=== PATIENT | male | born 1965 | race Caucasian/White ===

== ENCOUNTER 2017-11-13 02:20 | Observation (INO) | payer OTHER ==
[~2017-11-13] VITALS: Ht 180.3 cm; Wt 73.6 kg
[2017-11-13 00:24] LABS: AUTOMATED NEUTROPHIL # 5.4 TH/MM3 (1.8-7.7); BASOPHIL % 0.4 % (0.0-2.0); EOSINOPHIL % 0.6 % (0.0-4.0); HEMOGLOBIN 16.2 GM/DL (13.0-17.0); IG % 0.4 % (0-6); LYMPH % 8.1 % (9.0-44.0); LYMPHOCYTE # 0.6 TH/MM3 (1.0-4.8); MEAN CELL VOLUME 83.2 FL (80.0-100.0); MEAN CORPUSCULAR HEMOGLOBIN 27.5 PG (27.0-34.0); MEAN CORPUSCULAR HGB CONC 33.1 % (32.0-36.0); MEAN PLATELET VOLUME 10.3 FL (7.0-11.0); MONOCYTE # 0.7 TH/MM3 (0-0.9); NEUT % 80.5 % (16.0-70.0); PLATELET COUNT 199 TH/MM3 (150-450); RED BLOOD COUNT 5.89 MIL/MM3 (4.50-5.90); RED CELL DISTRIBUTION WIDTH 18.4 % (11.6-17.2); WHITE BLOOD COUNT 6.8 TH/MM3 (4.0-11.0)
[2017-11-13 00:36] LABS: CALCIUM 8.6 MG/DL (8.5-10.1); CREATININE 0.9 MG/DL (0.60-1.30)
[~2017-11-13 02:20] MED LIST: ACETAMINOPHEN 325 MG TAB PO PRN; ASPI81CH6 CHEW; BISACODYL 10 MG SUPP RECTAL PRN; LACTULOSE SYRUP 20 GM/30 ML CUP PO PRN; MAGNESIUM HYDROXIDE SUSP 30 ML CUP PO PRN; NALOXONE HCL 0.4 MG/ML AMP IV PUSH PRN; ONDANSETRON HCL 4 MG/2 ML VIAL IVP PRN; PLAV75TA29 PO; RESP: ALBUTEROL 2.5 MG/IPRATROPIUM 0.5 MG NEB (PRN) NEB; SENNOSIDES 8.6 MG TAB PO PRN; SODIUM CHLORIDE 0.9% FLUSH 10 ML FLUSH IV FLUSH PRN; TIOT1AER INH
[2017-11-13 02:51] VITALS: BP 129/93; PULSE 101; RESP 18; TEMP 98.1; O2SAT 94
--- NOTE | 2017-11-13 04:03 | HHI.HP ---
[facility] No Primary Care Physician Admission Diagnosis Diagnoses: Travel History International Travel<30 Days: No Contact w/Intl Traveler <30 Da: No Traveled to Known Affected Are: No History of Present Illness 52-year-old male with a past medical history significant for "lung scarring" and history of TIA presents to the emergency department with a two-week history of bilateral lower extremity edema that is worsening. Patient complains accompanying shortness of breath and a chronic nonproductive cough that is going on for approximately 2 months. 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 He denies any history of CHF. He recently moved here from [place] and has not established with a primary care physician or tapper shank. The patient is unable to tell me any further information about his lung disease. He denies fever/chills. Denied chest pain. No nausea/vomiting/abdominal pain. Review of Systems Except as stated in HPI: all other systems reviewed are Neg Past Family Social History Past Medical History Nonspecific lung scarring History of TIA Past Surgical History Right rotator cuff repair Reported Medications Reported Meds & Active Scripts Active Reported Stiolto Respimat Inh (Tiotropium-Olodaterol Inh) 2.5-2.5 Mcg/Act Aero 2 Puff INH DAILY Plavix (Clopidogrel Bisulfate) 75 Mg Tab 75 Mg PO DAILY Aspirin Low Dose (Aspirin) 81 Mg Chew 81 Mg CHEW DAILY Allergies: Coded Allergies: No Known Allergies (Verified Allergy, Unknown, 11/12/17) Family History Mother of a brain tumor. Negative for CAD/DM Social History Rare alcohol. Denies tobacco and illicit drugs. Physical Exam Vital Signs Vital Signs Date Time Temp Pulse Resp B/P (MAP) Pulse Ox O2 Delivery O2 Flow Rate FiO2 11/13/17 02:51 94 Nasal Cannula 3.00 11/13/17 02:51 98.1 101 18 129/93 (105) 94 Physical Exam GENERAL: male lying in bed SKIN: No rashes, ecchymoses or lesions. Cool and dry. HEAD: Atraumatic. Normocephalic. No temporal or scalp tenderness. EYES: Pupils equal round and reactive. Extraocular motions intact. No scleral icterus. No injection or drainage. ENT: Nose without bleeding, purulent drainage or septal hematoma. Throat without erythema, tonsillar hypertrophy or exudate. Uvula midline. Airway patent. NECK: Trachea midline. No JVD or lymphadenopathy. Supple, nontender, no meningeal signs. CARDIOVASCULAR: Regular rate and rhythm without murmurs, gallops, or rubs. RESPIRATORY: Clear to auscultation. Breath sounds equal bilaterally. No wheezes , rales, or rhonchi. GASTROINTESTINAL: Abdomen soft, non-tender, nondistended. No hepato-splenomegaly , or palpable masses. No guarding. MUSCULOSKELETAL: 2+ bilateral lower extremity pitting edema NEUROLOGICAL: Awake and alert. Cranial nerves II through XII intact. Motor and sensory grossly within normal limits. Normal speech. Laboratory Laboratory Tests Test 11/13/17 00:04 White Blood Count 6.8 Red Blood Count 5.89 Hemoglobin 16.2 Hematocrit 49.0 Mean Corpuscular Volume 83.2 Mean Corpuscular Hemoglobin 27.5 Mean Corpuscular Hemoglobin Concent 33.1 Red Cell Distribution Width 18.4 Platelet Count 199 Mean Platelet Volume 10.3 Immature Granulocyte % (Auto) 0.4 Neutrophils (%) (Auto) 80.5 Lymphocytes (%) (Auto) 8.1 Monocytes (%) (Auto) 10.0 Eosinophils (%) (Auto) 0.6 Basophils (%) (Auto) 0.4 Immature Granulocyte # (Auto) 0.0 Neutrophils # (Auto) 5.4 Lymphocytes # (Auto) 0.6 Monocytes # (Auto) 0.7 Eosinophils # (Auto) 0.0 Basophils # (Auto) 0.0 CBC Comment DIFF FINAL Differential Comment Blood Urea Nitrogen 19 Creatinine 0.90 Random Glucose 79 Calcium Level 8.6 Sodium Level 139 Potassium Level 4.0 Chloride Level 104 Carbon Dioxide Level 26.0 Anion Gap 9 Estimat Glomerular Filtration Rate 89 Result Diagram: 11/13/17 0004 11/13/17 0004 Caprini VTE Risk Assessment Caprini VTE Risk Assessment: No/Low Risk (score <= 1) Caprini Risk Assessment Model Point Value = 1 Point Value = 2 Point Value = 3 Point Value = 5 Age 41-60 Minor surgery BMI > 25 kg/m2 Swollen legs Varicose veins or History of unexplained or recurrent spontaneous Oral contraceptives or hormone replacement Sepsis (< 1 month) Serious lung disease, including pneumonia (< 1 month) Abnormal pulmonary function Acute myocardial infarction Congestive heart failure (< 1 month) History of inflammatory bowel disease Medical patient at bed rest Age 61-74 Arthroscopic surgery Major open surgery (> 45 min) Laparoscopic surgery (> 45 min) Malignancy Confined to bed (> 72 hours) Immobilizing plaster cast Central venous access Age >= 75 History of VTE Family history of VTE Factor V Leiden Prothrombin [id number] Lupus anticoagulant Anticardiolipin antibodies Elevated serum homocysteine Heparin-induced thrombocytopenia Other congenital or acquired thrombophilia Stroke (< 1 month) Elective arthroplasty Hip, pelvis, or leg fracture Acute spinal cord injury (< 1 month) Prophylaxis Regimen Total Risk Factor Score Risk Level Prophylaxis Regimen 0-1 Low Early ambulation 2 Moderate Order ONE of the following: *Sequential Compression Device (SCD) *Heparin 5000 units SQ BID 3-4 Higher Order ONE of the following medications: *Heparin 5000 units SQ TID *Enoxaparin/Lovenox 40 mg SQ daily (WT < 150 kg, CrCl > 30 mL/min) *Enoxaparin/Lovenox 30 mg SQ daily (WT < 150 kg, CrCl > 10-29 mL/min) *Enoxaparin/Lovenox 30 mg SQ BID (WT < 150 kg, CrCl > 30 mL/min) AND/OR *Sequential Compression Device (SCD) 5 or more Highest Order ONE of the following medications: *Heparin 5000 units SQ TID (Preferred with Epidurals) *Enoxaparin/Lovenox 40 mg SQ daily (WT < 150 kg, CrCl > 30 mL/min) *Enoxaparin/Lovenox 30 mg SQ daily (WT < 150 kg, CrCl > 10-29 mL/min) *Enoxaparin/Lovenox 30 mg SQ BID (WT < 150 kg, CrCl > 30 mL/min) AND *Sequential Compression Device (SCD) Assessment and Plan Assessment and Plan Assessment/plan: 1. Bilateral lower extremity edema Patient without history of CHF Pitting edema with shortness of breath and hypoxia Echo pending Supplemental oxygen as needed BNP 383 Chest x-ray significant for diffuse interstitial disease, personally reviewed CTA chest showed a mild left pleural effusion and a minimal right pleural effusion 2. Interstitial lung disease CTA showed widespread irregular parenchymal density seen bilaterally Patient was previously seen by pulmonology and states he was placed on Spiriva but given a nonspecific diagnosis of lung scarring Pulmonary consulted, appreciate recommendations Continue Spiriva 3. History of TIA Continue aspirin and Plavix FEN Heart healthy diet Electrolytes: monitor and replete prn Ambulation Jackelin Moran MD Nov 13, 2017 04:03
[2017-11-13 05:38] VITALS: BP 138/97; PULSE 102; RESP 14; TEMP 97.8; O2SAT 95
[2017-11-13 07:25] VITALS: BP 135/94; PULSE 95; RESP 18; TEMP 97.8; O2SAT 91
[2017-11-13] MEDS: FUROSEMIDE 40 MG/4 ML VIAL IV PUSH SCH ×2 (08:09→17:56)
[2017-11-13] MEDS: SODIUM CHLORIDE 0.9% FLUSH 10 ML FLUSH IV FLUSH SCH ×2 (08:09→20:55)
[2017-11-13] MEDS: DOCUSATE SODIUM 50 MG/SENNA 8.6 MG TAB PO SCH ×2 (08:12→20:56)
[2017-11-13 11:42] VITALS: BP 120/81; PULSE 107; RESP 20; TEMP 98.2; O2SAT 92
--- NOTE | 2017-11-13 16:50 | MB ---
cc: Lyric Gunter MD DATE: 11/13/2017 REASON FOR CONSULTATION: Bilateral lung infiltrates. HISTORY OF PRESENT ILLNESS: Mr. 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 He presents with increasing ankle edema, increasing shortness of breath, presently on oxygen therapy. He denies history of fever or chill. Has a dry cough. No hemoptysis. No TB. No industrial exposure. The patient was given diuretic therapy in an attempt to reduce his lower extremity edema. He denies orthopnea or PND. PAST MEDICAL HISTORY: "Lung scarring" which he was told he had about 6 years ago prior to his moving to the [facility]. SOCIAL HISTORY: Does not smoke, does not drink. No TB, no industrial exposure. FAMILY HISTORY: , lives with . MEDICATIONS AT HOME 1. Stiolto. 2. Plavix. 3. Aspirin. ALLERGIES: NONE KNOWN TO MEDICATION. FAMILY HISTORY: Noncontributory. SYSTEMS REVIEW: 12-point review of systems as per HPI and past history, otherwise negative. PHYSICAL EXAMINATION: GENERAL: The patient is alert. VITAL SIGNS: Temperature 98, pulse 90, respirations 18, O2 saturation 94% on 3 liters oxygen. HEENT: Exam unremarkable. Eyes without icterus. NECK: Without adenopathy, thyroid enlargement. CHEST: A few rhonchi at bases. CARDIAC EXAM: PMI distant. S1, S2 audible. No murmur, no rub. ABDOMEN: Lax, bowel sounds audible. EXTREMITIES: 2+ edema. SKIN: Normal. No lymphadenopathy. LABORATORY DATA: White count 6.8, hemoglobin 16, hematocrit 49, platelets 199,000. Sodium 139, potassium 4.0, BUN 19, creatinine 0.9. CT angiogram without pulmonary emboli. Bilateral lung infiltrates are noted. IMPRESSION: 1. Respiratory failure. 2. Bilateral lung infiltrates, age indeterminate. 3. History of transient ischemic attack, on aspirin and Plavix. ASSESSMENT AND PLAN: The patient apparently has progressively been deteriorating over a long period of time. Lung infection is a possibility; however, the most likely cause of the lung infiltrates is previous industrial exposure. The tells me that she does have the previous x-ray reports on this and she will bring them in for review and that obviously would be very helpful. Meanwhile empiric antibiotic therapy, IV steroid therapy would be appropriate. Review echocardiogram and address same as needed. Lung biopsy will be obtained should that become necessary as well. Meanwhile, we will obtain baseline pulmonary functions and arterial blood gas. I do thank you for asking me to partake in Mr. Mcfarland's care. Lyric Gunter MD WWW/PASCALE , 04:18 PM , 04:48 PM
[2017-11-13] MEDS: LEVOFLOXACIN 500 MG PREMIX INJ 100 ML IV SCH (17:55)
--- NOTE | 2017-11-13 18:06 | ECHRPT ---
Indication: CONCLUSIONS Normal left ventricular size. Wall thickness is normal. The left ventricular systolic function is low normal with an estimated ejection fraction in the rang e of 50%. The right ventricle is moderately dilated. The right ventricular systoilc function is moderately decreased. There is mild tricuspid valve regurgitation. There is estimated severe pulmonary hypertension present ( 70 mmHg). The pulmonary valve is not well visualized. A moderate left sided pleural effusion is noted. BP: / HR: Rhythm: Technical Quality: FINDINGS LEFT VENTRICLE Normal left ventricular size. Wall thickness is normal. The left ventricular systolic function is low normal with an estimated ejection fraction in the rang e of 50%. RIGHT VENTRICLE The right ventricle is moderately dilated. The right ventricular systoilc function is moderately decreased. LEFT ATRIUM The left atrial size is normal. RIGHT ATRIUM The right atrial size is normal. ATRIAL SEPTUM Normal atrial septal thickness without atrial level shunting by limited color doppler interrogation. AORTA The aortic root and proximal ascending aorta are normal in size on limited imaging. MITRAL VALVE Structurally normal mitral valve. No mitral valve stenosis or regurgitation. AORTIC VALVE Trileaflet aortic valve. No aortic valve stenosis or regurgitation. TRICUSPID VALVE There is mild tricuspid valve regurgitation. There is estimated severe pulmonary hypertension present ( 70 mmHg). PULMONARY VALVE The pulmonary valve is not well visualized. VESSELS The inferior vena cava is normal in size. PERICARDIUM A moderate left sided pleural effusion is noted. Constantin Adams MD, FACC, FSCAI (Electronically Signed) Final Date:13 November 2017 18:04
[2017-11-13 20:06] VITALS: BP 134/83; PULSE 105; RESP 17; O2SAT 96
[2017-11-13 20:59] VITALS: O2SAT 97
[2017-11-14] VITALS (9 sets, daily range): BP systolic 107–134; BP diastolic 71–86; PULSE 89–106; RESP 16–18; TEMP 96.7–98.7; O2SAT 90–98
[2017-11-14] MEDS: SODIUM CHLORIDE 0.9% FLUSH 10 ML FLUSH IV FLUSH SCH ×2 (08:58→21:00)
[2017-11-14] MEDS: DOCUSATE SODIUM 50 MG/SENNA 8.6 MG TAB PO SCH ×2 (08:58→21:00)
[2017-11-14] MEDS: FUROSEMIDE 40 MG/4 ML VIAL IV PUSH SCH ×2 (08:59→18:39)
--- NOTE | 2017-11-14 09:04 | MB ---
cc: Constantin Adams MD DATE: 11/13/2017 HISTORY OF PRESENT ILLNESS: Armando is a very pleasant 52-year-old gentleman, recently moved here and presents with a chief complaint of severe shortness of breath and lower extremity edema. He otherwise denies any fever, chills, chest pain, orthopnea. The patient also reports a nonproductive cough. PAST MEDICAL HISTORY: Includes "lung scarring," history of TIA, extremities, right rotator cuff repair MEDICATIONS PRIOR TO ADMISSION: Stiolto, Plavix 75, aspirin 81 mg a day. ALLERGIES: NONE. SOCIAL HISTORY: Denies tobacco or alcohol use. MEDICATIONS: Levofloxacin, Lasix 40 IV b.i.d., Senna 1 tablet b.i.d. PHYSICAL EXAMINATION: VITAL SIGNS: Blood pressure 120/81, pulse 107, temperature 98.1, saturations 92% on room air. GENERAL: He is alert and oriented x 3, in moderate distress. NECK: Supple. No JVD. No bruit. CARDIOVASCULAR: S1, S2. No murmurs, rubs or gallops. PULMONARY: Lungs with decreased breath sounds bilaterally. ABDOMEN: Soft, nontender, nondistended with positive bowel sounds. EXTREMITIES: 1-2+ lower extremity edema. IMAGING: CT of the chest shows no pulmonary embolus, widespread irregular parenchymal density seen bilaterally, this is nonspecific, could be from prior inflammatory or inhalational diseases given the multiple irregular areas. An area of neoplasm cannot be excluded. It is recommended the lungs be followed with CT. Mild left pleural effusion, minimal right pleural effusion. Chest x-ray, diffuse interstitial disease. This could be secondary to edema or more chronic interstitial process. There is a mild left pleural effusion. ECHOCARDIOGRAM: Read by myself. EF 50%. Severe pulmonary hypertension, PA pressure of 70, hypokinetic. At least moderately dilated right ventricle, with flattening of the septum, suggestive of pressure volume overload and moderate left-sided pleural effusion. LABORATORY DATA: White count 6.8, hemoglobin 15.2, hematocrit 49.0, platelet count 199. Sodium 139, potassium 4.0, chloride 104, bicarbonate 26, BUN 19, creatinine 0.90. His BNP is 383 and total bilirubin 1.2. HE HAS THE FOLLOWING DIAGNOSES: 1. Congestive heart failure. 2. Pulmonary hypertension. 3. Interstitial lung disease. 4. History of transient ischemic attack. 5. Lower extremity edema. 6. Decompensated congestive heart failure. 7. Right ventricular heart failure. DISCUSSION: At this point in time, the PE has been ruled out by CT of the chest. Suspect his interstitial lung disease may be related to hypoxia causing his pulmonary hypertension. He is being appropriately diuresed. His BNP is minimally elevated. Recommended following BNP, BMP. I recommended a left and right heart catheterization to him and his significant other. Explained the risks and benefits of the procedure is 5-10% chance of , stroke, heart attack, bleeding, infection, need for bypass surgery, dialysis, bleeding, infection anaphylaxis and arrhythmia. The patient has requested a different relocation commissioner. I will talk to Dr. Marion about arranging that. MD ALE Sexton/THIERRY , 06:49 PM , 07:13 PM
--- NOTE | 2017-11-14 10:37 | MB ---
cc: Kamron Henry MD DATE: 11/14/2017 REASON FOR CONSULTATION: Congestive heart failure. HISTORY OF PRESENT ILLNESS: The patient is a 52-year-old white male with a history of transient ischemic attack last year in [place], chronic interstitial lung disease, who presented to the hospital with a 2-week history of increasing pedal edema and slightly increased shortness of breath from baseline. 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 Two weeks ago, he developed for the first time ever fairly severe pedal edema. He denies chest pain, palpitations, syncope, near-syncope, lightheadedness, paroxysmal nocturnal dyspnea. He also denies hemoptysis, pleurisy, fevers, flu symptoms. He does not recall ever having a lung biopsy or any specific therapy for his lung disease. Since coming into the hospital, his pedal edema and dyspnea have improved. PAST MEDICAL HISTORY: 1. Transient ischemic attack, apparently diagnosed in [place] last year. 2. Chronic lung disease, possibly interstitial lung disease, diagnosed about 6 years ago in [place]. PAST SURGICAL HISTORY: Right rotator cuff surgery. CARDIAC MEDICATIONS AT HOME: 1. Plavix 75 mg daily. 2. Aspirin 81 mg daily. ALLERGIES: NO KNOWN DRUG ALLERGIES. FAMILY HISTORY: There is no significant family history of early myocardial infarction or sudden cardiac . SOCIAL HISTORY: The patient denies any history of alcohol or tobacco abuse. He also denies IV drug abuse. REVIEW OF SYSTEMS: As in the history of present illness, otherwise negative or noncontributory. He also denies headache, visual changes, abdominal pain, melena, dyspepsia, bright red blood per rectum. PHYSICAL EXAMINATION: VITAL SIGNS: Blood pressure 131/80 with a pulse of 89, respirations 16. GENERAL: He is a well-developed, thin white male, in no acute distress. NECK: Jugular venous pressure is normal. Carotid pulses are 2+ bilaterally and without bruits. CHEST: Examination reveals minimal scattered rhonchi. CARDIAC: He has a regular rhythm and rate with a grade 1/6 systolic murmur heard at the lower left sternal border. No definite gallop is audible. ABDOMEN: On abdominal examination he has a soft, nontender abdomen. Bowel sounds are present. There is no definite hepatosplenomegaly. EXTREMITIES: Reveals no clubbing or cyanosis. There is 1+ pretibial edema bilaterally. LABORATORY DATA: EKG shows sinus tachycardia, poor R-wave progression, right axis deviation, cannot rule out right ventricular hypertrophy. Laboratory data includes normal CBC, normal basic metabolic profile. Chest x-ray shows diffuse interstitial disease, possible small left pleural effusion. IMPRESSION: Cor pulmonale, right-sided heart failure, probable pulmonary hypertension, chronic interstitial lung disease in this A 52-year-old white male with a history of transient ischemic attack, admitted with increased pedal edema and shortness of breath. His echocardiogram has been reviewed. It does show marked right ventricular enlargement with fairly severe right ventricular systolic dysfunction. The septum is also flattened throughout the cardiac cycle consistent with increased right ventricular pressure overload. The reported systolic pulmonary pressure of 70 mmHg I suspect is somewhat overestimated. It may be closer to 40-50 mmHg. The etiology of his right ventricular pathology is likely his lung disease. Left ventricular systolic function is normal. Reportedly, there is no evidence for pulmonary embolism on CT angiogram. He has no history of chronic obstructive pulmonary disease or tobacco abuse. There is no evidence for pulmonic stenosis.] Unfortunately, his prognosis is poor. There is not much to offer from a cardiac standpoint. As I recall, long-term outcome even with heart/lung transplantation is poor. RECOMMENDATIONS: 1. Continue intravenous furosemide diuresis. 2. We will discuss with Dr. Gunter any additional pulmonary diagnostic options such as lung biopsy. 3. Also, would consider referring the patient to the [facility] pulmonary division or pulmonary hypertension clinic. MD RONDA Marie/PASCALE , 10:07 AM , 10:36 AM PATO
[2017-11-14] MEDS: LEVOFLOXACIN 500 MG PREMIX INJ 100 ML IV SCH (16:07)
--- NOTE | 2017-11-14 16:58 | HHI.PR ---
Subjective Remarks Patient says he is feeling better. Denies any chest pain or shortness of breath. Says he feels like going home. Objective Vital Signs Date Time Temp Pulse Resp B/P (MAP) Pulse Ox O2 Delivery O2 Flow Rate FiO2 11/14/17 16:12 98.7 103 18 123/78 (93) 95 11/14/17 13:04 98.0 106 17 112/80 (91) 94 11/14/17 08:59 Nasal Cannula 3.00 11/14/17 08:16 96.7 89 16 131/80 (97) 96 11/14/17 03:37 97.7 91 17 124/86 (99) 94 11/14/17 00:02 97.9 100 17 107/71 (83) 96 11/13/17 20:59 97 Nasal Cannula 3.00 11/13/17 20:59 97 Nasal Cannula 3.00 11/13/17 20:06 105 17 134/83 (100) 96 I/O 11/13/17 11/13/17 11/13/17 11/14/17 11/14/17 11/14/17 07:00 15:00 23:00 07:00 15:00 23:00 Output Total 500 ml Balance -500 ml Output Urine Total 500 ml Result Diagram: 11/13/17 0004 11/13/17 0004 Objective Remarks GENERAL: standing in room. AAOx3 SKIN: Warm and dry. HEAD: Normocephalic. EYES: No scleral icterus. No injection or drainage. NECK: Supple, trachea midline. No JVD. CARDIOVASCULAR: Regular rate and rhythm without murmurs, gallops, or rubs. RESPIRATORY: Breath sounds equal bilaterally. No accessory muscle use. GASTROINTESTINAL: Abdomen soft, non-tender, nondistended. MUSCULOSKELETAL: No cyanosis. 1+ peripheral edema. Improved from yesterday. BACK: Nontender without obvious deformity. No CVA tenderness. A/P Assessment and Plan //Bilateral lower extremity edema //Right-sided congestive heart failure. //Severe pulmonary hypertension. Patient without history of CHF Pitting edema with shortness of breath and hypoxia Echo pending Supplemental oxygen as needed BNP 383 Chest x-ray significant for diffuse interstitial disease, personally reviewed CTA chest showed a mild left pleural effusion and a minimal right pleural effusion = Improving. Patient and not interested in catheterization. Discussed with cardiology. Continue to watch overnight. Possibly can discharge home tomorrow. //Left-sided pleural effusion -As per pulmonology. //Interstitial lung disease CTA showed widespread irregular parenchymal density seen bilaterally Patient was previously seen by pulmonology and states he was placed on Spiriva but given a nonspecific diagnosis of lung scarring Pulmonary consulted, appreciate recommendations Continue Spiriva // History of TIA Continue aspirin and Plavix FEN Heart healthy diet Electrolytes: monitor and replete prn Ambulation Discharge Planning Discussed with cardiology. Plan to watch overnight. Plan discharge tomorrow. Anshu Marion MD Nov 14, 2017 16:58
--- NOTE | 2017-11-14 17:59 | HHI.PR ---
Subjective Remarks alert on o2 3l/NC LE EDEMA REDUCED Objective Vital Signs Date Time Temp Pulse Resp B/P (MAP) Pulse Ox O2 Delivery O2 Flow Rate FiO2 11/14/17 16:12 98.7 103 18 123/78 (93) 95 11/14/17 13:04 98.0 106 17 112/80 (91) 94 11/14/17 08:59 Nasal Cannula 3.00 11/14/17 08:16 96.7 89 16 131/80 (97) 96 11/14/17 03:37 97.7 91 17 124/86 (99) 94 11/14/17 00:02 97.9 100 17 107/71 (83) 96 11/13/17 20:59 97 Nasal Cannula 3.00 11/13/17 20:59 97 Nasal Cannula 3.00 11/13/17 20:06 105 17 134/83 (100) 96 I/O 11/13/17 11/13/17 11/13/17 11/14/17 11/14/17 11/14/17 07:00 15:00 23:00 07:00 15:00 23:00 Output Total 500 ml Balance -500 ml Output Urine Total 500 ml Result Diagram: 11/13/17 0004 11/13/17 0004 Objective Remarks GENERAL: SKIN: Warm and dry. HEAD: Atraumatic. Normocephalic. EYES: Pupils equal and round. No scleral icterus. No injection or drainage. ENT: No nasal bleeding or discharge. Mucous membranes pink and moist. NECK: Trachea midline. No JVD. CARDIOVASCULAR: Regular rate and rhythm. RESPIRATORY: No accessory muscle use. Clear to auscultation. Breath sounds equal bilaterally. GASTROINTESTINAL: Abdomen soft, non-tender, nondistended. Hepatic and splenic margins not palpable. MUSCULOSKELETAL: Extremities without clubbing, cyanosis, or edema. No obvious deformities. NEUROLOGICAL: Awake and alert. No obvious cranial nerve deficits. Motor grossly within normal limits. Five out of 5 muscle strength in the arms and legs. Normal speech. PSYCHIATRIC: Appropriate mood and affect; insight and judgment normal. Assessment and Plan Assessment and Plan IMPRESSION RESPIRATORY FAILURE COPD NON SMOKER) COR PULMONALE , WITH SMALL BILATERAL EFFUSIONS EXTENSIVE FIBROTIC CHANGE BTH LUNGS, PROBABLY DUE TO CONCRETE DUST INHALATION PFT , MODERATELY SEVERE OBSTRUCTION PLAN OK FOR D/C ON SYMBICORT BID O2 3L/NC REFER FOR TRANSPLANT EVALUATION F/U OFFICE 1 WEEK Lyric Gunter MD Nov 14, 2017 17:59
[2017-11-14] MEDS ORDERED: OXYGENDME NAS.CANULA (19:43)
[2017-11-14 22:49] LABS: CALCIUM 8.5 MG/DL (8.5-10.1); CREATININE 1.23 MG/DL (0.60-1.30); MAGNESIUM 1.9 MG/DL (1.5-2.5)
[2017-11-15 04:29] VITALS: BP 118/77; PULSE 96; RESP 18; TEMP 98.9; O2SAT 95
[2017-11-15 07:13] VITALS: BP 123/88; PULSE 102; RESP 14; TEMP 98; O2SAT 98
[2017-11-15 07:33] LABS: AUTOMATED NEUTROPHIL # 6.1 TH/MM3 (1.8-7.7); BASOPHIL % 0.5 % (0.0-2.0); EOSINOPHIL # 0.1 TH/MM3 (0-0.4); EOSINOPHIL % 1.8 % (0.0-4.0); HEMATOCRIT 48.7 % (39.0-51.0); HEMOGLOBIN 16.4 GM/DL (13.0-17.0); LYMPH % 6.7 % (9.0-44.0); LYMPHOCYTE # 0.5 TH/MM3 (1.0-4.8); MEAN CORPUSCULAR HEMOGLOBIN 28.2 PG (27.0-34.0); MEAN CORPUSCULAR HGB CONC 33.6 % (32.0-36.0); MEAN PLATELET VOLUME 8.8 FL (7.0-11.0); MONO % 13.3 % (0.0-8.0); NEUT % 77.7 % (16.0-70.0); PLATELET COUNT 171 TH/MM3 (150-450); RED CELL DISTRIBUTION WIDTH 17.9 % (11.6-17.2); WHITE BLOOD COUNT 7.8 TH/MM3 (4.0-11.0)
[2017-11-15 07:38] VITALS: O2SAT 96
[2017-11-15 07:58] LABS: ALBUMIN 2.8 GM/DL (3.4-5.0); BICARBONATE 33.6 MEQ/L (21.0-32.0); CALCIUM 8.5 MG/DL (8.5-10.1); CREATININE 1.14 MG/DL (0.60-1.30)
[2017-11-15 07:59] LABS: PHOSPHORUS 4.3 MG/DL (2.5-4.9)
--- NOTE | 2017-11-15 08:22 | PD.CARD.PN ---
Subjective Subjective Remarks Fairly severe dyspnea with mild exertion this morning. No CP, dizziness, palpitations. Slept well. Objective Medications Current Medications Medications (Trade) Dose Ordered Sig/Heath Route Start Time Stop Time Status Last Admin (NS Flush) 2 ml UNSCH PRN IV FLUSH 11/12/17 23:00 (NS Flush) 2 ml BID IV FLUSH 11/13/17 09:00 11/14/17 08:58 (Tylenol) 650 mg Q4H PRN PO 11/12/17 23:00 (Zofran Inj) 4 mg Q6H PRN IVP 11/12/17 23:00 (Narcan Inj) 0.4 mg UNSCH PRN IV PUSH 11/12/17 23:00 (Kalee-Colace) 1 tab BID PO 11/13/17 09:00 11/14/17 08:58 (Milk Of Magnesia Liq) 30 ml Q12H PRN PO 11/12/17 23:00 (Senokot) 17.2 mg Q12H PRN PO 11/12/17 23:00 (Dulcolax Supp) 10 mg DAILY PRN RECTAL 11/12/17 23:00 (Lactulose Liq) 30 ml DAILY PRN PO 11/12/17 23:00 (Lasix Inj) 40 mg BID@09,18 IV PUSH 11/13/17 09:00 Future Hold 11/14/17 18:39 (Duoneb Neb) 1 ampule Q4HR NEB PRN NEB 11/12/17 23:00 Levofloxacin/ Dextrose 100 ml @ 100 mls/hr Q24H IV 11/13/17 17:00 11/14/17 16:07 Vital Signs / I&O Vital Signs Date Time Temp Pulse Resp B/P (MAP) Pulse Ox O2 Delivery O2 Flow Rate FiO2 11/15/17 07:13 98.0 102 14 123/88 (100) 98 11/15/17 06:37 21 11/15/17 04:29 98.9 96 18 118/77 (91) 95 11/14/17 23:00 98.0 106 18 134/84 (101) 90 11/14/17 21:03 98.2 105 18 115/80 (92) 95 11/14/17 19:00 98 Nasal Cannula 3.00 11/14/17 19:00 98 Nasal Cannula 3.00 11/14/17 16:12 98.7 103 18 123/78 (93) 95 11/14/17 13:04 98.0 106 17 112/80 (91) 94 11/14/17 08:59 96 Nasal Cannula 3.00 11/14/17 08:59 Nasal Cannula 3.00 I/O 11/14/17 11/14/17 11/14/17 11/15/17 11/15/17 11/15/17 07:00 15:00 23:00 07:00 15:00 23:00 Intake Total 320 ml Output Total 900 ml 600 ml Balance -580 ml -600 ml Intake Oral 320 ml Output Urine Total 900 ml 600 ml Physical Exam GENERAL: Well developed, well nourished. No acute distress. HEENT: Jugular venous pressure is normal. CHEST: Diminished breath sounds bases. CARDIAC: Regular rate and rhythm without S3, S4, or murmur. ABDOMEN: Soft, nontender, no hepatosplenomegaly. Bowel sounds present. EXTREMITIES: No clubbing, cyanosis. 1-2+ pretibial edema. Laboratory Laboratory Tests Test 11/14/17 11:47 11/14/17 22:24 11/15/17 06:12 Blood Urea Nitrogen 18 MG/DL 18 MG/DL Creatinine 1.23 MG/DL 1.14 MG/DL Random Glucose 62 MG/DL 68 MG/DL Calcium Level 8.5 MG/DL 8.5 MG/DL Magnesium Level 1.9 MG/DL 2.0 MG/DL Sodium Level 137 MEQ/L 136 MEQ/L Potassium Level 3.6 MEQ/L 3.6 MEQ/L Chloride Level 97 MEQ/L 95 MEQ/L Carbon Dioxide Level 35.0 MEQ/L 33.6 MEQ/L Anion Gap 5 MEQ/L 7 MEQ/L Estimat Glomerular Filtration Rate 62 ML/MIN 68 ML/MIN White Blood Count 7.8 TH/MM3 Red Blood Count 5.80 MIL/MM3 Hemoglobin 16.4 GM/DL Hematocrit 48.7 % Mean Corpuscular Volume 84.0 FL Mean Corpuscular Hemoglobin 28.2 PG Mean Corpuscular Hemoglobin Concent 33.6 % Red Cell Distribution Width 17.9 % Platelet Count 171 TH/MM3 Mean Platelet Volume 8.8 FL Neutrophils (%) (Auto) 77.7 % Lymphocytes (%) (Auto) 6.7 % Monocytes (%) (Auto) 13.3 % Eosinophils (%) (Auto) 1.8 % Basophils (%) (Auto) 0.5 % Neutrophils # (Auto) 6.1 TH/MM3 Lymphocytes # (Auto) 0.5 TH/MM3 Monocytes # (Auto) 1.0 TH/MM3 Eosinophils # (Auto) 0.1 TH/MM3 Basophils # (Auto) 0.0 TH/MM3 CBC Comment DIFF FINAL Differential Comment Albumin 2.8 GM/DL Phosphorus Level 4.3 MG/DL Assessment and Plan Problem List: (1) Cor pulmonale ICD Codes: I27.81 - Cor pulmonale (chronic) Status: Chronic Plan: Stable overnight. Severe dyspnea with mild exertion however. Suspect his right ventricular failure is due to chronic fibrotic lung disease, pulmonary hypertension. Prognosis poor without heart/lung transplant. Agree with going to [facility] for further evaluation and treatment. Recommend no work activities indefinitely. OK to discharge today from my standpoint. (2) Congestive heart failure (CHF) ICD Codes: I50.9 - Heart failure, unspecified Status: Acute Plan: Pedal edema overall considerably improved. Recommend oral furosemide on discharge 40 mg qd, KCl 10 mEq qd. Code Status full code Discussed Condition With patient and , at length Problem Qualifiers (1) Congestive heart failure (CHF): Qualified Codes: I50.811 - Acute right heart failure Kamron Henry MD Nov 15, 2017 08:22
[2017-11-15] MEDS ORDERED: FURO1TAB60 PO (08:44)
[2017-11-15] MEDS ORDERED: Albuterol-Ipratropium Neb NEB (08:44)
[2017-11-15] MEDS ORDERED: LEVO750T3 PO (08:44)
[2017-11-15] MEDS ORDERED: FUROSEMIDE 20 MG TAB PO SCH (09:00)
[2017-11-15] MEDS: SODIUM CHLORIDE 0.9% FLUSH 10 ML FLUSH IV FLUSH SCH (09:10)
[2017-11-15] MEDS: DOCUSATE SODIUM 50 MG/SENNA 8.6 MG TAB PO SCH (09:10)
--- NOTE | 2017-11-15 22:36 | HHI.DS ---
Discharge Summary Admission Date Nov 13, 2017 at 02:30 Discharge Date: Nov 15, 2017 Admitting Diagnosis Procedures none Brief History - From Admission 52-year-old male with a past medical history significant for "lung scarring" and history of TIA presents to the emergency department with a two-week history of bilateral lower extremity edema that is worsening. Patient complains accompanying shortness of breath and a chronic nonproductive cough that is going on for approximately 2 months. 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 He denies any history of CHF. He recently moved here from [place] and has not established with a primary care physician or stove polisher. The patient is unable to tell me any further information about his lung disease. He denies fever/chills. Denied chest pain. No nausea/vomiting/abdominal pain. CBC/BMP: 11/15/17 0612 11/15/17 0612 Significant Findings Laboratory Tests Test 11/13/17 00:04 11/14/17 11:47 11/14/17 22:24 11/15/17 06:12 Red Cell Distribution Width 18.4 % (11.6-17.2) 17.9 % (11.6-17.2) Neutrophils (%) (Auto) 80.5 % (16.0-70.0) 77.7 % (16.0-70.0) Lymphocytes (%) (Auto) 8.1 % (9.0-44.0) 6.7 % (9.0-44.0) Monocytes (%) (Auto) 10.0 % (0.0-8.0) 13.3 % (0.0-8.0) Lymphocytes # (Auto) 0.6 TH/MM3 (1.0-4.8) 0.5 TH/MM3 (1.0-4.8) Blood Urea Nitrogen 19 MG/DL (7-18) Random Glucose 62 MG/DL (74-106) 68 MG/DL (74-106) Chloride Level 97 MEQ/L (98-107) 95 MEQ/L (98-107) Carbon Dioxide Level 35.0 MEQ/L (21.0-32.0) 33.6 MEQ/L (21.0-32.0) Estimat Glomerular Filtration Rate 62 ML/MIN (>89) 68 ML/MIN (>89) Monocytes # (Auto) 1.0 TH/MM3 (0-0.9) Albumin 2.8 GM/DL (3.4-5.0) Pt update on day of discharge patient says he is doing well. no CP. Hospital Course //Bilateral lower extremity edema //Right-sided congestive heart failure. //Severe pulmonary hypertension. Patient without history of CHF Pitting edema with shortness of breath and hypoxia Echo pending Supplemental oxygen as needed BNP 383 Chest x-ray significant for diffuse interstitial disease, personally reviewed CTA chest showed a mild left pleural effusion and a minimal right pleural effusion = Improving. Patient and not interested in catheterization. Discussed with cardiology. Continue to watch overnight. Possibly can discharge home tomorrow. //Left-sided pleural effusion -As per pulmonology. //Interstitial lung disease CTA showed widespread irregular parenchymal density seen bilaterally Patient was previously seen by pulmonology and states he was placed on Spiriva but given a nonspecific diagnosis of lung scarring Pulmonary consulted, appreciate recommendations Continue Spiriva // History of TIA Continue aspirin and Plavix FEN Heart healthy diet Electrolytes: monitor and replete prn Ambulation Discharge Planning Discussed with cardiology. Plan to watch overnight. Plan discharge tomorrow. Pt Condition on Discharge: Good Discharge Disposition: Discharge Home Discharge Time: > 30 minutes Discharge Instructions DIET: Follow Instructions for: Heart Healthy Diet Fluid Restrictions: 1800ml Activities you can perform: Regular-No Restrictions Follow up Referrals: Cardiology - 1 Week with Kamron Henry MD PCP Follow-up - 1 Week Pulmonology - 1 Week with Lyric Gunter MD New Medications: Furosemide (Lasix) 40 Mg Tab 40 MG PO DAILY for heart, #30 TAB 0 Refills Levofloxacin (Levofloxacin) 750 Mg Tablet 750 MG PO DAILY for Infection for 5 Days, #5 TAB 0 Refills Oxygen (O2) (Oxygen (O2)) Device LITER ELEANOR.CANULA CONTINUOUS for Prevent Hypoxemia, #2 Oxygen Concentrator Portable Gaseous 2 L/min via Nasal Canula Continuous For 99 months [Albuterol-Ipratropium Neb] () 1 AMPULE NEBU 1 AMPULE NEB Q4HR NEB PRN for SOB/Wheezing for 30 Days Continued Medications: Aspirin (Aspirin Low Dose) 81 Mg Chew 81 MG CHEW DAILY, TAB 0 Refills Clopidogrel (Plavix) 75 Mg Tab 75 MG PO DAILY for Blood Clot Prevention, #30 TAB 0 Refills Tiotropium-Olodaterol Inh (Stiolto Respimat Inh) 2.5-2.5 Mcg/Act Aero 2 PUFF INH DAILY for COPD, #1 INHALER 0 Refills Anshu Marion MD Nov 15, 2017 22:36
[2017-11-16 16:42] LABS: HISTOPLASMA ANTIGEN UR RESULT Negative (Negative)
--- NOTE | 2017-11-20 13:34 | RSPPFT ---
DATE OF PROCEDURE: 11/14/17 COMMENTS: Spirometry with FVC of 1.8, FEV1 of 1.0, FEV1/FVC ratio at 58%. A positive response to acutely inhaled bronchodilator noted. IMPRESSION: 1. Moderately severe airways obstruction. 2. Positive response to acutely inhaled bronchodilator.
== END 2017-11-15 10:47 | disposition home or self-care (01) ==
LOC: PHEDDLT 02:20 → NEPFCDU 02:30
PROVIDERS: ADMIT Internal Medicine; ATTEND Internal Medicine
DX: I50.810 Right heart failure, unspecified (principal); R60.0 Localized edema; J96.91 Respiratory failure, unspecified with hypoxia; J90 Pleural effusion, not elsewhere classified; I27.29 Other secondary pulmonary hypertension; R91.8 Other nonspecific abnormal finding of lung field; J84.10 Pulmonary fibrosis, unspecified; Z79.82 Long term (current) use of aspirin; Z79.02 Long term (current) use of antithrombotics/antiplatelets; Z86.73 Personal history of transient ischemic attack (TIA), and cerebral infarction without residual deficits
CPT/HCPCS: 36600; 71045; 71275; 80048; 80053; 80069; 82550; 82805; 83735; 83880; 84484; 85025; 85379; 85610; 85730; 87385; 87449; 93005; 93306; 94060; 94618; 96365; 96366; 96375; 96376; 99285; G0378; J1940; J1956; Q9967